=== PATIENT | male | born 1945 | race Caucasian/White ===

== ENCOUNTER 2019-04-03 05:49 | Day surgery (SDC) | payer OTHER ==
[~2019-04-03] VITALS: Ht 167.6 cm; Wt 93.0 kg
[~2019-04-03 05:49] MED LIST: Aspir 8181 MG PO; ENAL5 PO; FISH OIL 1,001000 MG PO; NICOTINE LOZENGE2 MG MM
[2019-04-03] MEDS ORDERED: CARV6.25 PO (06:20)
--- NOTE | 2019-04-03 10:14 | NUR ---
air fully deflated from TR BAND. pt tolerates well. VSS. NADN. R Radial TR Band remains clear. no bleeding noted. call light within reach.
--- NOTE | 2019-04-03 10:32 | NUR ---
PT VERBALIZES UNDERSTANDING WRITTEN AND VERBAL ORDERS. PT VSS. NADN. R RADIAL TR BAND IN PLACE. NO BLEEDING NOTED. CALL LIGHT WITHINR EACH.
--- NOTE | 2019-04-03 10:55 | NUR ---
PT TR BAND REMOVED. NO BLEEDING OR HEMATOMA NOTED. DOT DRESSING APPLIED WITH SPLINT AND SLING. PT DRESSES SELF WITH MINIMAL ASSISTANCE. PT DC TO HOME VIA FRIEND BY ISHAN
== END 2019-04-03 11:00 | disposition home or self-care (01) ==
LOC: MHTC 05:49
PROC: B205YZZ Plain Radiography of Left Heart using Other Contrast (ICD-10-PCS; principal; 2019-04-03)
PROC: 4A023N7 Measurement of Cardiac Sampling and Pressure, Left Heart, Percutaneous Approach (ICD-10-PCS; principal; 2019-04-03)
PROC: B201YZZ Plain Radiography of Multiple Coronary Arteries using Other Contrast (ICD-10-PCS; principal; 2019-04-03)
DX: I25.10 Atherosclerotic heart disease of native coronary artery without angina pectoris (principal); I25.82 Chronic total occlusion of coronary artery; E78.5 Hyperlipidemia, unspecified; H91.90 Unspecified hearing loss, unspecified ear; I10 Essential (primary) hypertension; Z79.01 Long term (current) use of anticoagulants; Z79.82 Long term (current) use of aspirin; Z79.899 Other long term (current) drug therapy; I65.23 Occlusion and stenosis of bilateral carotid arteries; Z87.891 Personal history of nicotine dependence
CPT/HCPCS: 76937; 93454; 93567; 99152; 99153; C1769; C1894; J0360; J1644; J2250; J3010; J7030; Q9967

== ENCOUNTER 2024-01-29 12:49 | Inpatient (IN) | payer OTHER ==
[2024-01-29] VITALS (23 sets, daily range): BP systolic 62–183; BP diastolic 30–145
[~2024-01-29] VITALS: Ht 182.9 cm; Wt 83.6 kg
[~2024-01-29 12:49] MED LIST changes: +CARV6.25 PO
[2024-01-29 13:03] LABS: Calcium, Ionized (POC) 1.11 mmol/L (1.10-1.46); Chloride (POC) 106 mmol/L (98-108); Creatinine (POC) 1.5 mg/dL (0.8-1.3); Glucose (ISTAT POC) 324 mg/dL (70-99); Hemoglobin (POC) 13.3 g/dL (13.5-17.5); Potassium (POC) 3.8 mmol/L (3.5-5.5); Sodium (POC) 137 mmol/L (135-148); Total CO2 (POC) 17 mmol/L (21-32)
[2024-01-29] MEDS ORDERED: Ipratropium Bromide INH 0.02% 0.5 mg/2.5ML Vial INH SCH (13:15)
[2024-01-29] MEDS ORDERED: Furosemide 10 MG / ML 2ML Vial IV ONE (13:15)
[2024-01-29] MEDS ORDERED: Albuterol 2.5 MG/3 ML VIAL INH SCH (13:15)
[2024-01-29 13:21] LABS: Hematocrit 39.3 % (37.0-53.0); Hemoglobin 12.7 g/dL (13.5-17.5); Mean Corpuscular HGB 30.4 pg (26.0-34.0); Mean Corpuscular HGB Conc 32.3 g/dL (31.5-36.5); Mean Corpuscular Volume 94 fL (80-100); Mean Platelet Volume 9.4 fL (9.1-12.4); NRBC ABSOLUTE 0.02 K/mm3 (0.00-0.02); NRBC Auto 0.1 /100 WBC (0.0-0.2); Platelet Count 373 K/mm3 (150-400); RDW Coefficient Variation 13.7 % (11.7-14.2); RDW Standard Deviation 47.4 fL (35.1-46.3); Red Blood Cell Count 4.18 M/mm3 (4.30-5.90); White Blood Cell Count 24.36 K/mm3 (4.00-11.30)
[2024-01-29 13:37] LABS: PCO2 Arterial 56.8 mmHg (35-45); PO2 Arterial 87.2 mmHg (80-100); pH Blood Arterial 7.09 (7.35-7.45)
[2024-01-29 13:43] LABS: BASOPHILS ABSOLUTE MAN 0.24 K/mm3 (0.00-0.23); BASOPHILS PERCENT MAN 1 % (0-2); EOSINOPHILS PERCENT MAN 0 % (0-6); LYMPHOCYTES ABSOLUTE MAN 2.67 K/mm3 (0.84-5.20); LYMPHOCYTES PERCENT MAN 11 % (21-46); MONOCYTES ABSOLUTE MAN 0.73 K/mm3 (0.16-1.47); MONOCYTES PERCENT MAN 3 % (4-13); SEG NEUTROPHILS PERCENT MAN 85 % (41-73); TOTAL CELLS COUNTED 100
[2024-01-29 13:45] LABS: Albumin, Blood 2.5 g/dL (3.4-5.0); Albumin/Globulin Ratio 0.7 (0.8-1.8); Bilirubin, Total 0.5 mg/dL (0.1-1.0); Bun/Creatinine Ratio 24.4 (12.0-20.0); Calcium, Blood 8.7 mg/dL (8.5-10.1); Creatinine, Blood 1.35 mg/dL (0.60-1.20); Globulin, Blood 3.7 g/dL (2.2-4.0); Total Protein, Blood 6.2 g/dL (6.4-8.2)
[2024-01-29] MEDS ORDERED: Lactated Ringer's 1,000 ML IV SCH (15:15)
[2024-01-29] MEDS ORDERED: FLU VACC TS2024-25(6MOS UP)/PF 45 MCG/0.5 ML SYRINGE IM SCH (15:15)
--- NOTE | 2024-01-29 17:24 | NUR ---
ARRIVAL TO ICU/SHIFT SUMMARY PT ARRIVES TO ICU FROM ER AT 1550. REPORT FROM ZACHARY RODRIGEZ. PT REPORTED SOB X 1 WEEK. INTUBATED IN ROUTE, ONE ROUND OF CPR AND ONE EPI POST INTUBATION FOR PEA, ROSC OBTAINED. PT ARRIVES UNRESPONSIVE TO PAINFUL STIMULI. NO COUGH/GAG/SWALLOW. PUPILS EQUAL, 3MM. NO CORNEAL REFLEX. NO SEDATION SINCE INTUBATION. LUNGS CLEAR OTHER THAN CRACKLES IN LLL. PT OCCASIONALLY BREATING OVER VENT, SETTINGS AC/VC 20/550/8/70%. ST, RATE 120'S. HTN NOTED. EXT COOL. RADIAL PULSES STRONG, PEDAL FAINT. ABD ROUND, SOFT, NON TENDER, BT X 4. OGT TO LIS. BUSTAMANTE PATENT, DRAINED 150 ML CLEAR YELLOW URINE TO GRAVITY. SISTER UPDATED ON PHONE. WILL CONTINUE PLAN OF CARE UNTIL REPORT TO ONCOMING NURSE.
[2024-01-29 17:27] LABS: Base Excess Venous -13.1 mmol/L; Bicarbonate Venous 14.2 mmol/L (24.0-30.0); PCO2 Venous 48.9 mmHg (38-42); pH Blood Venous 7.13 (7.34-7.37)
[2024-01-29] MEDS ORDERED: Cetylpyridinium Chloride 1 EA MISC MT SCH (17:50)
[2024-01-29] MEDS ORDERED: Ipratropium/Albuterol SulF 2.5-0.5MG/3 ML Amp INH PRN (17:55)
[2024-01-29] MEDS ORDERED: Pantoprazole Sodium 40 MG Injection IV SCH (18:00)
[2024-01-29] MEDS ORDERED: Enoxaparin 40 MG/0.4 ML SYR SC SCH (18:00)
[2024-01-29 18:45] LABS: Source, Urine Foley catheter
[2024-01-29 18:54] LABS: Appearance, Urine Clear (Clear); Bilirubin, Urine Neg (Neg); Blood, Urine Neg (Neg); Color, Urine Amber (P-Yellow); Glucose Qualitative, Urine Neg (Neg); Ketones, Urine 1+ (Neg); Leukocyte Esterase, Urine Neg (Neg); Nitrite, Urine Neg (Neg); Protein, Urine 2+ (Neg); Specific Gravity, Urine 1.025 (1.003-1.022); Urobilinogen, Urine NORM (Normal)
[2024-01-29 19:06] LABS: Bacteria Many /hpf; Mucus Light (0-Heavy); Squamous Epithelial Cells Rare /hpf (Few); White Blood Cells, Urine 0-2 /hpf (0-5)
--- NOTE | 2024-01-29 19:45 | NUR ---
ASSUMPTION OF CARE ASSUMED CARE OF PATIENT AT 1900, BEDSIDE SHIFT REPORT RECEIVED FROM MADISON RN. PT RESTING IN BED, INTUBATED BUT NOT SEDATED. NO PURPOSEFUL MOVEMENTS NOTED, NO COUGH, GAG OR CORNEAL REFLEX NOTED. PT DOES NOT RESPOND TO PAINFUL STIMULI. PUPILS EQUAL AND REACTIVE TO LIGHT. HR 110-120'S SINUS, HYPERTENSIVE. VENT SETTINGS AC/VC 20/550/8/90%, OXYGEN SATURATION >90%, PT TACHYPNEIC. ABDOMEN SOFT, BOWEL TONES HYPOACTIVE, OG TUBE IN PLACE. TEMP BUSTAMANTE IN PLACE PATENT DRAINING YELLOW URINE TO GRAVITY. PIV IN PLACE TO REJ, RAC AND LAC SL. PT SKIN COLD AND CLAMMY. BED IN LOWEST POSITION, CARE CONTINUES.
--- NOTE | 2024-01-29 20:20 | NUR ---
PT UPDATE PT HYPOTENSIVE WITH MAP <65. CALL PLACED TO AND PT SISTER PRIYANKA. UPDATE GIVEN TO PRIYANKA, PER PRIYANKA SHE DOES NOT WANT TO START LEVOPHED AT THIS TIME. CARE CONTINUES.
[2024-01-29] MEDS ORDERED: NS 1,000 ML IV SCH (20:30)
--- NOTE | 2024-01-29 21:59 | NUR ---
FIRE SAFETY EDUCATION PT NOT EDUCATED ON FIRE SAFETY R/T SMOKING, OXYGEN AND IGNITION SOURCES DUE TO THE PT BEING INTUBATED AND UNRESPONSIVE. NO FAMILY AT THE BEDSIDE TO GIVE EDUCATION. NO IGNITION SOURCES PRESENT. CARE CONTINUES.
[2024-01-29] MEDS ORDERED: Midazolam HCl 1MG / ML 2ML Vial IV PRN (23:40)
[2024-01-30] VITALS (56 sets, daily range): BP systolic 101–151; BP diastolic 62–96
[2024-01-30] MEDS ORDERED: Hydrogen Peroxide 1.5 % Solution MT SCH
[2024-01-30 03:41] LABS: Hemoglobin 11.5 g/dL (13.5-17.5); Mean Corpuscular HGB Conc 32.9 g/dL (31.5-36.5); Mean Corpuscular Volume 91 fL (80-100); Mean Platelet Volume 9.8 fL (9.1-12.4); NRBC ABSOLUTE 0.02 K/mm3 (0.00-0.02); NRBC Auto 0.1 /100 WBC (0.0-0.2); Platelet Count 260 K/mm3 (150-400); RDW Coefficient Variation 14.1 % (11.7-14.2); RDW Standard Deviation 46.9 fL (35.1-46.3); Red Blood Cell Count 3.83 M/mm3 (4.30-5.90); White Blood Cell Count 17.21 K/mm3 (4.00-11.30)
[2024-01-30 03:47] LABS: Base Excess Venous -10.7 mmol/L; Bicarbonate Venous 17.1 mmol/L (24.0-30.0); PCO2 Venous 26.9 mmHg (38-42); pH Blood Venous 7.35 (7.34-7.37)
[2024-01-30 04:09] LABS: Albumin, Blood 2.4 g/dL (3.4-5.0); Anion Gap 18 mmol/L (3-11); Blood Urea Nitrogen 55 mg/dL (8-24); Bun/Creatinine Ratio 24.3 (12.0-20.0); CO2, Blood 15 mmol/L (21-32); Calcium, Blood 8.3 mg/dL (8.5-10.1); Chloride, Blood 111 mmol/L (98-108); Creatinine, Blood 2.26 mg/dL (0.60-1.20); Glomerular Filtration Rate 29 (60-); Glucose, Blood 288 mg/dL (70-99); Magnesium, Blood 2.9 mg/dL (1.6-2.4); Phosphorus, Blood 6.4 mg/dL (2.5-4.9); Potassium, Blood 4.5 mmol/L (3.5-5.5); Sodium, Blood 139 mmol/L (136-145)
--- NOTE | 2024-01-30 05:28 | NUR ---
SHIFT SUMMARY PT CONTINUES TO REST IN BED, INTUBATED BUT NOT SEDATED. NO PURPOSEFUL MOVEMENTS NOTED, PT DOES NOT RESPOND TO NOXIOUS STIMULI. NO COUGH, GAG OR CORNEAL REFLEX NOTED. PT PUPILS EQUAL AND REACTIVE TO LIGHT. PT HAS OCCASIONAL FULL BODY SPASMS WITH STIMULATION. PT HAD TMAX OF 100.9 THIS SHIFT. HR 90-110'S SINUS, BLOOD PRESSURE LABILE. VENT SETTINGS AC/VC 20/550/8/90%, OXYGEN SATURATION >90%. ABDOMEN SOFT, BOWEL TONES ACTIVE THROUGHOUT. OG TUBE IN PLACE CLAMPED. TEMP BUSTAMANTE IN PLACE PATENT DRAINING YELLOW URINE TO GRAVITY. PIV IN PLACE TO RAC, LAC AND REJ. NS INFUSING AT 100MLS/HR. BED IN LOWEST POSITION, CARE CONTINUES.
--- NOTE | 2024-01-30 07:46 | NUR ---
ASSUMED CARE BEDSIDE REPORT FROM SHERLYN RODRIGEZ AT 0700. PT INTUBATED, VENT SETTINGS AC/VC 20/550/8/60%. LUNGS CLEAR. NO SECRETIONS FROM ETT. NO SEDATION, GIVEN VERSED PRN FOR MYOCLONIC JERKING OF UPPER EXT AND HEAD, RESOLVED c VERSED. PT HAS COUGH AND SWALLOW c ETT SUCTIONING. NO SWALLOW. PUPILS 2MM AND SLUGGISH, NO CORNEAL REFLEX. NO RESPONSE TO TRAPEZUS PINCH OR NAILBED PRESSURE TO BUE. PT HAS DELAY WITHDRAW TO NAILBED PRESSURE TO BLE. SR, RATE 90'S. BP STABLE. ABD ROUND, SOFT, HYPOACTIVE BT. OGT CLAMPED. BUSTAMANTE PATENT, DRAINING CLEAR YELLOW URINE TO GRAVITY. PIV X 3. NS GTT INFUSING. WILL CONTINUE PLAN OF CARE.
[2024-01-30] MEDS ORDERED: LORazepam 2 MG/ML 1ML Injection IV PRN (11:15)
[2024-01-30] MEDS ORDERED: Bisacodyl 10 MG Supp PR PRN (15:35)
[2024-01-30] MEDS ORDERED: Magnesium Hydroxide Conc 10 ML UDC PT PRN (15:35)
[2024-01-30] MEDS ORDERED: Docusate Sodium 100 MG UDC PT PRN (15:35)
--- NOTE | 2024-01-30 17:40 | NUR ---
SHIFT SUMMARY NO ACUTE CHANGES THIS SHIFT. PT CONTINUES TO HAVE OCCASIONAL MYOCLONIC JERKING, WORSE c AGITATION OR CARE, PRN'S GIVEN. PUPILS 2 MM AND SLUGGISH. +COUGH/SWALLOW, -GAG/CORNEAL REFLEX. DELAYED WITHDRAWAL TO BLE TO PAIN, NO RESPONSE TO BUE OR TRAPEZUS PINCH. SR, RATE 90'S. BP STABLE. NORMOTHERMIC PROTOCOL, COOLING BLANKET IN PLACE c ESOPHAGAL TEMP MONITORING. VENT SETTINGS AC/VC 20/550/8/40%. LUNGS COARSE c INCREASED SECRETIONS FROM ETT, THICK, COTA, SPUTUM SENT TO LAB. TUBE FEEDS STARTED VIA OGT. BUSTAMANTE PATENT, DRAINED 500 ML CLEAR ESCOBAR URINE TO GRAVITY. PIV X 3. FAMILY UPDATED AT BEDSIDE THIS SHIFT. QUESTIONS ANSWERED. SISTER PRIYANKA TOOK HOME ALL BELONGINGS INCLUDING PHONE AND WALLET. WILL CONTINUE PLAN OF CARE UNTIL REPORT TO ONCOMING NURSE.
--- NOTE | 2024-01-30 19:00 | NUR ---
ASSUMED CARE ASSUMED CARE OF PATIENT. REMAINS INTUBATED- AC/VC+ 20/550/8/40%. RR 30s-40s. PT WITH FREQUENT SEVERE MYOCLONIC JERKS. NOT FOLLOWING ANY COMMANDS. WITHDRAWS BLE TO NOXIOUS STIMULI, BUT NO OTHER RESPONSE. NO GAG NOTED. COUGH NOTED WITH SUCTIONING. KEL, 6-7MM. OG WITH PIVOT 1.5 AT 25MLs/HR (GOAL RATE OF 50MLs/HR). BUSTAMANTE PATENT AND DRAINING TO GRAVITY. TEMP 99.8F- COOLING BLANKET ON PT AT THIS TIME. SEE SHIFT ASSESSMENT FOR FULL ASSESSMENT.
[2024-01-30] MEDS ORDERED: FentaNYL Citrate 50 MCG/ML 2 ML Injection IV PRN (19:40)
[2024-01-31] VITALS (26 sets, daily range): BP systolic 78–145; BP diastolic 55–86
[2024-01-31] MEDS ORDERED: Acetaminophen 325 MG TABLET PT PRN (00:40)
[2024-01-31] MEDS ORDERED: propofoL 100 ML IV SCH (00:40)
[2024-01-31] MEDS ORDERED: Acetaminophen 160MG / 5ML 10.15 UDC PT PRN (00:50)
[2024-01-31 03:48] LABS: BASOPHILS ABSOLUTE AUTO 0.01 K/mm3 (0.00-0.23); BASOPHILS PERCENT AUTO 0 % (0-2); EOSINOPHILS PERCENT AUTO 0 % (0-6); Hematocrit 36.9 % (37.0-53.0); Hemoglobin 12.1 g/dL (13.5-17.5); IMMATURE GRAN ABSOLUTE AUTO 0.03 K/mm3 (0.00-0.10); IMMATURE GRAN PERCENT AUTO 1 % (0-1); LYMPHOCYTES ABSOLUTE AUTO 0.65 K/mm3 (0.84-5.20); LYMPHOCYTES PERCENT AUTO 14 % (21-46); MONOCYTES ABSOLUTE AUTO 0.27 K/mm3 (0.16-1.47); MONOCYTES PERCENT AUTO 6 % (4-13); Mean Corpuscular HGB 29.5 pg (26.0-34.0); Mean Corpuscular HGB Conc 32.8 g/dL (31.5-36.5); Mean Corpuscular Volume 90 fL (80-100); Mean Platelet Volume 9.9 fL (9.1-12.4); NEUTROPHILS ABSOLUTE AUTO 3.64 K/mm3 (1.96-9.15); NEUTROPHILS PERCENT AUTO 79 % (41-73); NRBC Auto 2.2 /100 WBC (0.0-0.2); Platelet Count 269 K/mm3 (150-400); RDW Coefficient Variation 14.4 % (11.7-14.2); RDW Standard Deviation 46.5 fL (35.1-46.3)
[2024-01-31 04:38] LABS: Magnesium, Blood 2.7 mg/dL (1.6-2.4)
[2024-01-31 04:52] LABS: Albumin, Blood 2.1 g/dL (3.4-5.0); Albumin/Globulin Ratio 0.6 (0.8-1.8); Bilirubin, Total 0.5 mg/dL (0.1-1.0); Bun/Creatinine Ratio 32.1 (12.0-20.0); Calcium, Blood 8.1 mg/dL (8.5-10.1); Creatinine, Blood 2.4 mg/dL (0.60-1.20); Globulin, Blood 3.5 g/dL (2.2-4.0); Potassium, Blood 3.8 mmol/L (3.5-5.5); Total Protein, Blood 5.6 g/dL (6.4-8.2)
[2024-01-31 04:53] LABS: Phosphorus, Blood 2.7 mg/dL (2.5-4.9)
--- NOTE | 2024-01-31 06:11 | NUR ---
SHIFT SUMMARY REMAINS INTUBATED- AC/VC+ 20/550/8/70%. RR 30s-40s DURING NOC. BP WNL. MONITOR SHOWS NSR-ST, RATE 90s-100s. TMAX 103F. COOLING BLANKET REMAINS ON. MEDICATED WITH TYLENOL 650MG PT X 1 DOSE. PROPOFOL STARTED DURING SHIFT- TITRATED BETWEEN 15-35MCG/KG/MIN. NOW INFUSING AT 30MCG/KG/MIN. MEDICATED WITH FENTANYL 25MCG IV X 1 DOSE FOR COMFORT AND WITH ATIVAN 2MG IV X 4 DOSES FOR MYOCLONIC JERKING. MYOCLONIC JERKING HAS SIGNIFICANTLY DECREASED SINCE STARTING PROPOFOL SEDATION. KEL, 3MM THIS AM. NO SPONTANEOUS MOVEMENT NOTED. WITHDRAWS BLE TO NOXIOUS STIMULI. PT DOES HAVE A COUGH, BUT NO GAG REFLEX. NO CORNEAL REFLEX NOTED. OG WITH PIVOT 1.5 AT 35MLS/HR (GOAL IS 50MLS/HR). BUSTAMANTE PATENT AND DRAINING TO GRAVITY. PLAN OF CARE ONGOING. WILL REPORT TO ONCOMING RN WHEN AVAILABLE.
--- NOTE | 2024-01-31 09:45 | NUR ---
AM NOTE... ASSUMED CARE OF PT AT 0700, PT IS INTUBATED AND SEDATED WITH PROPOFOL RUNNING AT 30MCG/KG TO HELP WITH MYOCLONIC JERKING. PT'S VENT SETTINGS ARE: AC/VC+: 20/550/7/70% WITH O2 SATS>90% L/S COARSE IN THE UPPER LOBES MORE SO ON THE LEFT THAN THE RIGHT. RR IN THE 30'S, A LARGE AMOUNT OF THICK COTA/YELLOW SECRETIONS SUCTIONED VIA ET TUBE. PT IS IN SR/ST 90'S-110'S, BP IS STABLE WITH MAPS>65. BT PRESENT AND HYPOACTIVE ABD IS SOFT TO PALPATION. OG TUBE IS RUNNING TUBE FEEDS AT GOAL OF 50MLS/HR. BUSTAMANTE IS PATENT AND DRAINING TO GRAVITY. PT'S TMAX IS 101.[address] AT THIS TIME. PT'S PUPILS ARE 3-4MM SLUGGISH BUT EQUAL. PT WITHDRAWS FROM PAINFUL STIMULI TO THE RLE ONLY. WILL CONTINUE TO MONITOR.
--- NOTE | 2024-01-31 13:15 | NUR ---
PT UPDATE.... PT WENT TO FOR HEAD CT AT AROUND 1200, PT RETURNED TO THE ROOM AROUND 1230, PT TOLERATED THE TRANSFER WELL. PROVIDER AWARE OF RESULTS. NO NEW ORDERS.
--- NOTE | 2024-01-31 13:31 | NUR ---
PT UPDATE.... SEDATION VACATION WAS STARTED AT 0915 AT APROX 1030 PROVIDER AT THE BEDSIDE TO ASSESS THE PT, WITH ANY STIMULIATION THE PT STARTED TO HAVE VIOLENT MYOCOLONIC JERKING. THE PT'S SISTER AND FRIEND WERE AT THE BEDSIDE DURING THIS ASSESSMENT. ORDER FOR HEAD CT WAS GIVEN. THE PT'S SISTER SAID SHE DID NOT THINK THE PT WOULD WANT TO CONTINUE TO BE ON "LIFE SUPPORT LIKE THIS." PALLIATIVE CARE NOTIFIED. WILL CONTINUE TO MONITOR.
[2024-01-31] MEDS ORDERED: Morphine Sulfate 10 MG/ML 1MLSYR INH PRN (14:15)
[2024-01-31] MEDS ORDERED: Atropine Sulfate 1% Opth Soln 2ML BTL SL PRN (14:15)
[2024-01-31] MEDS ORDERED: HYDROmorphone HCl/Pf 1MG SYR IV PRN (14:15)
[2024-01-31] MEDS ORDERED: Scopolamine Hydrobromide Patch TOP PRN (14:15)
[2024-01-31] MEDS ORDERED: LORazepam 2 MG/ML 1ML Injection IV PRN (14:15)
[2024-01-31] MEDS ORDERED: Haloperidol Lactate Inj. 5 MG/ML Injection IV PRN (14:15)
[2024-01-31] MEDS ORDERED: Morphine Sulfate 10 MG/ML 1MLSYR IV PRN (14:15)
[2024-01-31] MEDS ORDERED: Morphine Sulfate 20 MG/1ML 1 ML Oral Syringe SL PRN (14:15)
[2024-01-31] MEDS ORDERED: Ondansetron HCl 2 MG / ML 2ML Vial IV PRN (14:15)
--- NOTE | 2024-01-31 14:19 | NUR ---
UPDATE FAMILY AT BEDSIDE. FAMILY DISCUSSED AND DECIDED TO EXTUBATE TO COMFORT CARE. HOSPITALIST, SEAT COVERER, PALLIATIVE AND PAPER COATING SUPERVISOR NOTIFIED.
--- NOTE | 2024-01-31 14:29 | NUR ---
"Spiritual Care | Confirt Care Pt. is on comfort care and is not responsive. Family is at bedside and welcomes my visit. Facilitated life review and considered matters of ryan and belief. Prayed for Pt. Family verbalized gratitude for the spiritual care visit. Will remain available to the family as they plan to extubate sometime soon."
--- NOTE | 2024-01-31 14:44 | NUR ---
UPDATE PT EXTUBATED TO COMFORT AT 1438, PT FAMILY AND CIVIL PREPAREDNESS COORDINATOR AT BEDSIDE. PT MEDICATED PER EMAR FOR COMFORT.
--- NOTE | 2024-01-31 15:15 | NUR ---
"Spiritual Care | EOL - [facility]. After extubation stayed with family at bedside, and facilitated life review and story-telling. Pt. passed at 1508. Scripture is read, blessings are given and spiritual care is given to the family. EOL life education is given to the family. [facility] is the home the family has chosen. The family requests that the home contact the Pts. phone (as the [employer] # does not work in [facility].) The daughter's phone is a secondary number. Family verbalized gratitude for the spiritual care visit and support."
--- NOTE | 2024-01-31 16:08 | NUR ---
PT PASSED PT PASSED WITH FAMILY AT THE BEDSIDE AT 1508. PT APPEARED COMFORTABLE AT TOD.
== END 2024-01-31 18:35 | DRG 208 ==
LOC: ER 12:49 → ICUE 15:10
PROVIDERS: Internal Medicine Critical Care Medicine; Student in an Organized Health Care Education/Training Program; ADMIT Internal Medicine
PROC: 5A1945Z Respiratory Ventilation, 24-96 Consecutive Hours (ICD-10-PCS; principal; 2024-01-29)
PROC: 5A12012 Performance of Cardiac Output, Single, Manual (ICD-10-PCS; 2024-01-29)
PROC: 0DH67UZ Insertion of Feeding Device into Stomach, Via Natural or Artificial Opening (ICD-10-PCS; 2024-01-29)
PROC: 3E033XZ Introduction of Vasopressor into Peripheral Vein, Percutaneous Approach (ICD-10-PCS; 2024-01-29)
DX: J96.01 Acute respiratory failure with hypoxia (principal); G93.1 Anoxic brain damage, not elsewhere classified; I25.10 Atherosclerotic heart disease of native coronary artery without angina pectoris; I46.2 Cardiac arrest due to underlying cardiac condition; I10 Essential (primary) hypertension; Z66 Do not resuscitate; Z51.5 Encounter for palliative care; E78.00 Pure hypercholesterolemia, unspecified; J44.9 Chronic obstructive pulmonary disease, unspecified; Z95.1 Presence of aortocoronary bypass graft; Z87.891 Personal history of nicotine dependence; Z85.51 Personal history of malignant neoplasm of bladder; Z79.82 Long term (current) use of aspirin; Z79.899 Other long term (current) drug therapy
CPT/HCPCS: 36415; 36600; 51702; 70450; 71045; 71275; 74175; 80047; 80053; 80069; 81001; 82330; 82803; 83605; 83735; 83880; 84100; 84484; 85014; 85025; 85027; 87070; 87077; 87186; 87205; 93005; 93010; 94002; 94003; 94640; 94644; 94664; 96374-59; 99285-25; A9270; C8929; J1650; J1940; J2060; J2250; J2270; J2470; J2704; J3010; J7030; J7060; Q9957; Q9967